=== PATIENT | female | born 1995 | race Hispanic/Latino ===

== ENCOUNTER 2019-05-18 02:15 | Inpatient (IN) | payer BC ==
[2019-05-18] MEDS ORDERED: Ringers Lactate 1,000 ML IV PRN (03:43)
[2019-05-18] MEDS ORDERED: Ringers Lactate 1,000 ML IV SCH (04:00)
[2019-05-18 04:34] VITALS: BMI 28.5
[2019-05-18 05:12] LABS: RPR Titer ND
[2019-05-18 05:18] LABS: Urine Appearance CLOUDY; Urine Bilirubin NEGATIVE (NEG); Urine Blood NEGATIVE (NEG); Urine Color YELLOW; Urine Glucose NEGATIVE (NEG); Urine Protein NEGATIVE (NEG); Urine Specific Gravity 1.015 (1.005-1.030); Urine pH 7.5 (5.0-7.0)
[2019-05-18 05:18] LABS: Absolute Lymphocytes (CBC) 1.5 K/uL (0.7-4.9); Basophils % 0.8 % (0-1.3); Eosinophils % 2.2 % (0-4.4); Hematocrit 38.9 % (36.0-45.0); Lymphocytes % 16.7 % (15.3-44.8); MPV 9.1 fL (7.6-11.3); Monocytes % 7.4 % (3.3-12.3); RBC Red Blood Cell Count 4.68 M/uL (3.86-4.86)
[2019-05-18 05:31] LABS: Urine Microscopic Reflex ORDER UMIC
[2019-05-18] MEDS ORDERED: BUTORPHANOL 1 MG/ML INJ IV ONE (05:42)
[2019-05-18 05:52] LABS: Urine Amorphous Sediment 2+ /HPF (NONE SEEN); Urine Bacteria <20 /HPF (<20); Urine Culture Reflex Order NOT NEEDED; Urine RBC NONE SEEN /HPF (NONE SEEN)
--- NOTE | 2019-05-18 07:28 | P.OBGYNHP ---
Certification for Inpatient Patient admitted to: Inpatient With expected LOS: <2 Midnights Patient will require the following post-hospital care: None Practitioner: I am a practitioner with admitting privileges, knowledge of patient current condition, hospital course, and medical plan of care. Services: Services provided to patient in accordance with Admission requirements found in Title 42 Section 412.3 of the Code of Federal Regulations Patient History Date of Service: 05/19/19 Reason for admission: LABOR History of Present Illness: Patient is a 24 y/o who presents at 38 weeks and 6 days gestation in labor. Patient was seen last night at which time she was 1-2 cm dilated and the exam was unchanged after an hour. Patient was dismissed home and then returned to labor and delivery 4 hours later at which time she was found to be 3cm dilated, 80% effaced levy and uncomfortable. Patient was then admitted for management of labor. She has obtained care with Dr. Urbano. Records present. Patient has a h/o one prior vaginal delivery. See record for further details. Allergies No Known Allergies Allergy (Unverified 03/03/19 21:45) Home Medications: Iron,Carbonyl/Ascorbic Acid [Iron 100-Vitamin C Tablet] 1 each PO BID 05/18/19 Cmb#95/Iron/FA/Dha [ + Dha Combo Pack] 1 each PO DAILY - Past Medical/Surgical History Has patient received pneumonia vaccine in the past: No -: NVD 2010 - Social History Smoking Status: Never smoker Alcohol use: No CD- Drugs: No Caffeine use: No Place of Residence: Home Review of Systems 10-point ROS is otherwise unremarkable Physical Examination - Vital Signs Temperature: 98.9 F Blood Pressure: 119/77 Pulse: 64 Respirations: 20 - General General: Alert, Oriented x3, Mild distress HEENT: Atraumatic Neck: Supple Respiratory: Normal air movement Cardiovascular: No edema, Normal pulses Gastrointestinal: Other (gravid) Musculoskeletal: No clubbing, No swelling, No contractures - Female Pelvic External genitalia: Normal Vagina: Normal, [place] Cervix: Dilation (4-5), Effacement (90%), station (-2) Uterus: Gravid Adnexa: Unable to evaluate - Obstetrics heart rate tracing: Category 2 Amniotic membrane: AROM (clear) Laboratory Data (last 24 hrs) 05/18/19 04:56: WBC 8.9, Hgb 13.1, Hct 38.9, Plt Count 254 Assessment and Plan - Plan 24 y/o who presents at 38 weeks and 6 days gestation in active labor. GBS negative. Rupture of membranes performed. Epidural requested. Will then begin pitocin for labor augmentation. Continuous /maternal monitoring. Anticipate vaginal . Discharge Plan: Home Plan to discharge in: 48 Hours - Advance Directives Does patient have a Living Will: No Does patient have a Durable POA for Healthcare: No
[2019-05-18] MEDS ORDERED: ROPIVACAINE HCL 100 ML IV PRN (07:39)
[2019-05-18] MEDS ORDERED: ROPIVACAINE HCL 0.2% 20ML AMP SQ ONE (07:41)
[2019-05-18] MEDS ORDERED: FENTANYL CITR 100 MCG/2 ML IV ONE (07:42)
[2019-05-18] MEDS ORDERED: CARBOPROST TROME 250 MCG/ML IM ONE (11:34)
[2019-05-18] MEDS ORDERED: METHYLERGONOVINE 0.2MG/ML AMP IM ONE (11:34)
[2019-05-18] MEDS ORDERED: OXYTOCIN/LR 20 UNIT/1,000 ML BAG IV ONE (11:43)
[2019-05-18] MEDS ORDERED: ONDANSETRON 4 MG (ODT) TAB PO PRN (11:46)
[2019-05-18] MEDS ORDERED: Oxycodone HCl/Acetaminophen 1 TAB TAB PO PRN (11:46)
[2019-05-18] MEDS ORDERED: BISACODYL 10 MG RECTAL SUPP RECT PRN (11:46)
[2019-05-18] MEDS ORDERED: METHYLERGONOVINE 0.2 MG TAB PO PRN (11:46)
[2019-05-18] MEDS ORDERED: ACETAMINOPHEN 500 MG TAB PO PRN (11:46)
[2019-05-18] MEDS ORDERED: DOCUSATE NA/SENNA CONC 1 TAB PO PRN (11:46)
--- NOTE | 2019-05-18 11:52 | P.OP ---
Date of Service: 05/18/19 Findings and Operative Technique Patient delivered a viable male in cephalic presentation on 05/18/19 at 11:31. was delivered in KAREN position over a midline episiotomy. Meconium fluid was seen. Once was delivered the nose and mouth were suctioned well with a suction bulb. Cord was clamped and cut and infant was placed on mother's abdomen for skin to skin bonding. Attention was then turned to the umbilical cord, 3 vessel. Cord blood was obtained. Placenta was then delivered with gentle traction at 11:34. [place] bolus started. Attention was then turned to the midline episiotomy, noted to be a first degree, which was repaired with a 2.0 vicryl in a usual fashion. Fundus was palpated and noted to be firm. EBL was 200cc. APGARS were 9/9. Infant weight was found to be 6 lb. First stage of labor was 9 hours. Second stage of labor was 30 minutes. Mom will be breast feeding. Both mom and baby are doing well.
[2019-05-18 20:34] LABS: RPR (Rapid Plasma Reagin) NON-REACT (NON-REACT)
[2019-05-18] MEDS: IBUPROFEN 200 MG TAB PO PRN (21:00)
[2019-05-18 22:31] VITALS: BP 119/77; TEMP 98.9
[2019-05-19] MEDS: IBUPROFEN 200 MG TAB PO PRN (05:38)
[2019-05-19 05:52] LABS: Absolute Lymphocytes (CBC) 2.2 K/uL (0.7-4.9); Basophils % 0.8 % (0-1.3); Eosinophils % 1.5 % (0-4.4); Hematocrit 38.3 % (36.0-45.0); MPV 8.6 fL (7.6-11.3); RBC Red Blood Cell Count 4.63 M/uL (3.86-4.86)
[2019-05-19] MEDS ORDERED: MEASLES,MUMPS,RUBELLA VAC 0.5ML SQVAC ONE (09:48)
--- NOTE | 2019-05-19 22:16 | P.DS ---
Admission Date: 05/18/19 Discharge Date: 05/19/19 Disposition: ROUTINE DISCHARGE Discharge Condition: GOOD Reason for Admission: LABOR Brief History of Present Illness: Patient is a 24 y/o who presents at 38 weeks and 6 days gestation in labor. Patient was seen last night at which time she was 1-2 cm dilated and the exam was unchanged after an hour. Patient was dismissed home and then returned to labor and delivery 4 hours later at which time she was found to be 3cm dilated, 80% effaced levy and uncomfortable. Patient was then admitted for management of labor. She has obtained care with Dr. Urbano. Records present. Patient has a h/o one prior vaginal delivery. See record for further details. Hospital Course: Patient did well following delivery of the baby. She is feeling well. No pain. Voiding without difficulty. She is bonding well with the baby and breast feeding. She has been afebrile. Tolerating a regular diet. Minimal bleeding. Vital Signs/Physical Exam: Temp Pulse Resp BP Pulse Ox 97.8 F 68 18 119/69 05/19/19 12:00 05/19/19 12:00 05/19/19 12:00 05/19/19 12:00 General: Alert, In no apparent distress HEENT: Atraumatic Neck: Supple Respiratory: Normal air movement Cardiovascular: No edema Gastrointestinal: Other (fundus firm, palpable beneath umbilicus) Musculoskeletal: No clubbing, No swelling Integumentary: No rashes, No breakdown Neurological: Normal gait, Normal speech, Normal tone, Sensation intact External genitalia: No edema Laboratory Data at Discharge: WBC 10.8 K/uL (4.3-10.9) D 05/19/19 05:41 Hgb 13.3 g/dL (12.0-15.0) 05/19/19 05:41 Hct 38.3 % (36.0-45.0) 05/19/19 05:41 Plt Count 251 K/uL (152-406) 05/19/19 05:41 Home Medications: Iron,Carbonyl/Ascorbic Acid [Iron 100-Vitamin C Tablet] 1 each PO BID 05/18/19 Cmb#95/Iron/FA/Dha [ + Dha Combo Pack] 1 each PO DAILY Diet: Regular Activity: Ad rosa Followup: Whitley Urbano MD [ACTIVE - CAN ADMIT] - 1 Week
[2019-05-20 12:33] LABS: HBsAG Nonreactive (Nonreactive)
== END 2019-05-19 13:00 | disposition home or self-care (01) | DRG 807 ==
LOC: L&D 02:15 → 2ND-WC 03:38
PROVIDERS: ADMIT Specialist; ATTEND Specialist
PROC: 10E0XZZ Delivery of Products of Conception, External Approach (ICD-10-PCS; principal; 2019-05-18)
PROC: 0W8NXZZ Division of Female Perineum, External Approach (ICD-10-PCS; 2019-05-18)
DX: O80 Encounter for full-term uncomplicated delivery (principal); Z37.0 Single live birth; Z3A.38 38 weeks gestation of pregnancy
CPT/HCPCS: 36415; 81003; 81015; 85025; 86592; 86901; 87340; 90471; 90707; J0595; J2210; J2590; J2795; J3010

== ENCOUNTER 2021-01-21 17:01 | Emergency (ER) | payer BC, SELFPAY ==
[2021-01-21 18:01] LABS: Urine Blood NEGATIVE (NEG); Urine Glucose NEGATIVE (NEG); Urine Protein 1+ (NEG); Urine Specific Gravity >1.030 (1.005-1.030)
[2021-01-21 18:01] LABS: Absolute Lymphocytes (CBC) 0.7 K/uL (0.7-4.9); Basophils % 0.2 % (0-1.3); Hematocrit 24.4 % (36.0-45.0); Lymphocytes % 10.1 % (15.3-44.8); MPV 8.7 fL (7.6-11.3); RBC Red Blood Cell Count 2.95 M/uL (3.86-4.86)
[2021-01-21 18:22] LABS: ALT/SGPT 26 U/L (12-78); AST/SGOT 12 U/L (15-37); Albumin 3.8 g/dL (3.4-5.0); Alkaline Phosphatase 68 U/L (45-117); Bilirubin Direct < 0.1 mg/dL (0-0.2); Bilirubin Total 0.3 mg/dL (0.2-1.0); Protein, Total 6.9 g/dL (6.4-8.2)
[2021-01-21 18:31] LABS: BUN Blood Urea Nitrogen 11 mg/dL (7-18); Bicarbonate 24 mmol/L (21-32); Glucose Level 97 mg/dL (74-106); HCG, Quantitative 1245 mIU/mL (1-3); Potassium 3.5 mmol/L (3.5-5.1); Sodium Level 139 mmol/L (136-145)
--- NOTE | 2021-01-21 18:59 | RAD REPORT ---
EXAM DESCRIPTION: US - Transvaginal OB - 01/21/2021 6:51 pm CLINICAL HISTORY: ABD PAIN Pelvic pain, vaginal bleeding COMPARISON: OB Complete dated 12/31/2018 FINDINGS: The uterus is normal in size. The endometrium is thickened to 7 mm. No IUP is evident. The maternal adnexa and ovaries are within normal limits. Normal Doppler blood flow was demonstrated to both ovaries. No pelvic ascites. IMPRESSION: Endometrial stripe appears thickened without IUP identified. In the setting of an elevat ed HCG level, this would be compatible with of unknown location. Recommend close interval follow-up pelvic ultrasound and serial HCG levels.
--- NOTE | 2021-01-21 19:53 | ER ---
Nurse's Notes [facility] Name: Veronica Norton Age: 25 yrs Sex: Female : 1995 Arrival Date: 01/21/2021 Time: 17:02 Bed 13 Private MD: Diagnosis: Spontaneous Presentation: 01/21 17:16 Chief complaint: Patient states: Vaginal bleeding with clots for 2-3 days. Feels weak ll1 and dizzy. Had a positive test 2 weeks ago. G3, P2. Coronavirus screen: Client denies travel out of the [place] in the last 14 days. At this time, the client does not indicate any symptoms associated with coronavirus-19. Ebola Screen: Patient denies travel to an Ebola-affected area in the 21 days before illness onset. Initial Sepsis Screen: Does the patient meet any 2 criteria? No. Patient's initial sepsis screen is negative. Does the patient have a suspected source of infection? Yes: Acute abdominal pain. Risk Assessment: Do you want to hurt yourself or someone else? Patient reports no desire to harm self or others. Onset of symptoms was January 19, 2021. 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 - Social history:: Smoking status: Patient denies any tobacco usage or history of. Screenin:45 Abuse screen: Denies threats or abuse. Denies injuries from another. Nutritional jl7 screening: No deficits noted. Tuberculosis screening: No symptoms or risk factors identified. Fall Risk IV access (20 points). Total Pinedo Fall Scale indicates No Risk (0-24 pts). Assessment: 17:45 General: Appears in no apparent distress. uncomfortable, Behavior is calm, cooperative, jl7 appropriate for age. Pain: Pain currently is 6 out of 10 on a pain scale. Neuro: Level of Consciousness is awake, alert, obeys commands, Oriented to person, place, time, situation. Cardiovascular: Patient's skin is warm and dry. Respiratory: Airway is patent Respiratory effort is even, unlabored, Respiratory pattern is regular, symmetrical. : Urine is Reports vaginal bleeding that is with clots. Derm: Skin is pink, warm \T\ dry. 19:58 Reassessment: Patient appears in no apparent distress at this time. Patient and/or em family updated on plan of care and expected duration. Pain level reassessed. Patient is alert, oriented x 3, equal unlabored respirations, skin warm/dry/pink. Vital Signs: 17:16 BP 141 / 99; Pulse 103; Resp 17; Temp 99.2; Pulse Ox 98% ; Weight 63.5 kg; Height 5 ft. ll1 1 in. (154.94 cm); Pain 6/10; 17:16 Body Mass Index 26.45 (63.50 kg, 154.94 cm) ll1 ED Course: 17:02 Patient arrived in ED. as 17:17 Triage completed. ll1 17:18 Arm band placed on Patient placed in an exam room, on a stretcher. ll1 17:20 Jerson Houston PA is PHCP. jr8 17:20 Colten Monique MD is Attending Physician. jr8 17:45 Patient has correct armband on for positive identification. Placed in gown. Bed in low jl7 position. Call light in reach. Side rails up X 1. Pulse ox on. NIBP on. Warm blanket given. 17:47 Sage Rojas, IDALIA is Primary Nurse. jl7 17:54 Inserted saline lock: 20 gauge in right forearm, using aseptic technique. Blood mt collected. 18:00 Initial lab(s) drawn, by ED staff, sent to lab. Urine collected: clean catch specimen, jl7 clear. 18:36 US Transvaginal Ob In Process Unspecified. EDMS 19:57 No provider procedures requiring assistance completed. IV discontinued, intact, em bleeding controlled, No redness/swelling at site. Pressure dressing applied. Administered Medications: No medications were administered Outcome: 19:52 Discharge ordered by . jr8 19:57 Discharged to home ambulatory. em 19:57 Condition: good 19:57 Discharge instructions given to patient, Instructed on discharge instructions, follow up and referral plans. medication usage, Demonstrated understanding of instructions, follow-up care, Prescriptions given X 1. 19:58 Patient left the ED. em Signatures: Dispatcher [employer] Skyler Alaniz, RN RN Arti Collins Josh, PA PA jr8 Sage Rojas RN RN jl7 Lor Pandey mt, Lynsay, RN RN ll1
--- NOTE | 2021-01-21 19:53 | EDPHYS ---
Physician Documentation [facility] Name: Veronica Norton Age: 25 yrs Sex: Female : 1995 Arrival Date: 01/21/2021 Time: 17:02 Bed 13 Private MD: ED Physician Colten Monique HPI: 01/21 17:32 This 25 yrs old Female presents to ER via Ambulatory with complaints of jr8 Vaginal Bleeding - \R\8 wks preg, Abdominal Pain. 17:32 The patient presents with vaginal bleeding that is heavy. Onset: The symptoms/episode jr8 began/occurred 3 day(s) ago. Associated signs and symptoms: Pertinent positives: Dizziness. Patient reports home UPT with positive result 2 weeks ago. 3 days ago she started bleeding with abd cramping. Yesterday she was passing clots, increased abd pain, and dizziness. Today she has lower abd pain with bleeding no clots. . 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 - Social history:: Smoking status: Patient denies any tobacco usage or history of. ROS: 17:34 Cardiovascular: Negative for chest pain, palpitations, and edema, Respiratory: Negative jr8 for shortness of breath, cough, wheezing, and pleuritic chest pain, Back: Negative for injury and pain, MS/Extremity: Negative for injury and deformity, Skin: Negative for injury, rash, and discoloration, Neuro: Negative for headache, weakness, numbness, tingling, and seizure. 17:34 Abdomen/GI: Positive for abdominal pain. 17:34 : Positive for vaginal bleeding. Exam: 17:35 Chest/axilla: Normal chest wall appearance and motion. Nontender with no deformity. jr8 No lesions are appreciated. Cardiovascular: Regular rate and rhythm with a normal S1 and S2. No gallops, murmurs, or rubs. Normal PMI, no JVD. No pulse deficits. Respiratory: Lungs have equal breath sounds bilaterally, clear to auscultation and percussion. No rales, rhonchi or wheezes noted. No increased work of breathing, no retractions or nasal flaring. Back: No spinal tenderness. No costovertebral tenderness. Full range of motion. Skin: Warm, dry with normal turgor. Normal color with no rashes, no lesions, and no evidence of cellulitis. MS/ Extremity: Pulses equal, no cyanosis. Neurovascular intact. Full, normal range of motion. 19:51 : Pelvic Exam: External exam: is normal, Speculum exam: mild bleeding, no cervicitis, jr8 os that is open, discharge, is not appreciated, a female bone density technician was present for the exam, No tissue in vault . Vital Signs: 17:16 BP 141 / 99; Pulse 103; Resp 17; Temp 99.2; Pulse Ox 98% ; Weight 63.5 kg; Height 5 ft. ll1 1 in. (154.94 cm); Pain 6/10; 17:16 Body Mass Index 26.45 (63.50 kg, 154.94 cm) ll1 MDM: 17:20 Patient medically screened. 8 17:35 Data reviewed: vital signs, nurses notes, lab test result(s), radiologic studies, jr8 ultrasound. Data interpreted: monitor car operator: rate is 103 beats/min, rhythm is normal sinus rhythm, Pulse oximetry: on room air is 98 %. Interpretation: normal. 19:04 Counseling: I had a detailed discussion with the patient and/or guardian regarding: the 8 historical points, exam findings, and any diagnostic results supporting the discharge/admit diagnosis, lab results, radiology results, the need for outpatient follow up, an OB/Gyne specialist, to return to the emergency department if symptoms worsen or persist or if there are any questions or concerns that arise at home. 01/21 17:29 Order name: Quantitative Hcg jr8 01/21 17:29 Order name: Abo/rh Typing; Complete Time: 18:48 jr8 01/21 17:29 Order name: Basic Metabolic Panel; Complete Time: 18:36 jr8 01/21 17:29 Order name: CBC with Diff; Complete Time: 20:41 jr8 01/21 17:30 Order name: HCG, Quantitative; Complete Time: 18:36 EDMS 01/21 17:53 Order name: LFT's; Complete Time: 18:36 jr8 01/21 17:29 Order name: IV Saline Lock; Complete Time: 17:54 jr8 01/21 17:29 Order name: Labs collected and sent; Complete Time: 17:54 jr8 01/21 17:29 Order name: NPO; Complete Time: 17:54 jr8 01/21 17:29 Order name: Urine Dipstick-Ancillary (obtain specimen); Complete Time: 17:53 jr8 01/21 17:30 Order name: US Transvaginal Ob; Complete Time: 19:03 jr8 01/21 17:55 Order name: Urine Dipstick--Ancillary (enter results); Complete Time: 18:02 em1 01/21 17:55 Order name: Urine --Ancillary (enter results); Complete Time: 18:02 em1 Administered Medications: No medications were administered Disposition: 22:01 Co-signature as Attending Physician, Colten Monique MD I agree with the assessment and kdr plan of care. Disposition: 01/21/21 19:52 Discharged to Home. Impression: Spontaneous . - Condition is Stable. - Discharge Instructions: Miscarriage. - Prescriptions for Ferrous Sulfate 325 mg (65 mg Iron) Oral Tablet - take 1 tablet by ORAL route every 8 hours; 90 tablet. - Medication Reconciliation Form, Thank You Letter, Antibiotic Education, Prescription Opioid Use form. - Follow up: Private Physician; When: Tomorrow; Reason: Recheck today's complaints, Continuance of care, Re-evaluation by your physician. - Problem is new. - Symptoms have improved. Signatures: Dispatcher [employer] [facility] Colten Monique MD MD [facility] Skyler Aguilera, RN RN em Jerson Houston PA PA jr8 Amilcar Ly, RN RN ll1 Corrections: (The following items were deleted from the chart) 17:31 17:30 Transvaginal Study (Probe)+US.RAD.BRZ ordered. [facility] 19:58 19:52 01/21/2021 19:52 Discharged to Home. Impression: Spontaneous . Condition em is Stable. Forms are Medication Reconciliation Form, Thank You Letter, Antibiotic Education, Prescription Opioid Use. Follow up: Private Physician; When: Tomorrow; Reason: Recheck today's complaints, Continuance of care, Re-evaluation by your physician. Problem is new. Symptoms have improved. jr8
[2021-01-21 20:30] LABS: Blood Morphology Comment NOT SEEN (NOT SEEN); Platelet Estimate ADEQ; White Blood Cell Scan OK (OK)
[2021-01-21 21:18] VITALS: BP 141/99; TEMP 99.2; O2SAT 98
== END 2021-01-21 19:58 | disposition home or self-care (01) ==
LOC: ER 17:01
DX: O03.9 Complete or unspecified spontaneous abortion without complication (principal)
CPT/HCPCS: 36415; 76817; 80048; 80076; 81003; 81025; 84702; 85025; 86900; 86901; 99284

== ENCOUNTER 2022-10-21 15:53 | Emergency (ER) | payer SELFPAY ==
--- NOTE | 2022-10-21 17:18 | RAD REPORT ---
EXAM DESCRIPTION: US - Transvaginal OB - 10/21/2022 5:11 pm CLINICAL HISTORY: Vaginal bleeding COMPARISON: Transvaginal OB dated 01/21/2021 FINDINGS: A single gestational sac is seen within the uterus. The shape of the sac is within normal limits for gestational age. Within the sac is a single pole with crown-rump length of 26 mm, co rrelating to estimated gestational age of 9 weeks 0 days. Estimated date of delivery is 05/26/2023. Heart rate is 169 BPM. The placenta is not yet developed due to early gestational age. The maternal adnexa and ovaries are within normal limits. Normal Doppler blood flow was demonstrated to both ovaries. IMPRESSION: Single live early intrauterine gestation with estimated gestational age of 9 weeks and 0 days, DONALD 05/26/2023. No unusual or unexpected finding.
[2022-10-21 17:38] LABS: Absolute Lymphocytes (CBC) 2.6 K/uL (0.7-4.9); Hematocrit 39.1 % (36.0-45.0); Lymphocytes % 20.7 % (15.3-44.8); MCV 82.6 fL (80-100); MPV 8.2 fL (7.6-11.3); RBC Red Blood Cell Count 4.73 M/uL (3.86-4.86)
[2022-10-21 17:57] LABS: Potassium 3.6 mmol/L (3.5-5.1)
[2022-10-21] MEDS ORDERED: POTASSIUM 25 MEQ EFFERV TAB ONE (18:21)
[2022-10-21 18:50] LABS: Urine Blood 2+ (Negative); Urine Glucose Negative (Negative); Urine Protein Negative (Negative); Urine Specific Gravity 1.015 (1.005-1.030)
--- NOTE | 2022-10-21 18:51 | ER ---
Nurse's Notes [facility] Name: Veronica Norton Age: 27 yrs Sex: Female : 1995 Arrival Date: 10/21/2022 Time: 16:04 Bed 10 Private MD: Diagnosis: Threatened Presentation: 10/21 16:18 Chief complaint: Patient states: Positive test 10/09, lower abdominal kb3 cramping that began yesterday and light bleeding that began today. Pt states 2 pads used today. A1. Coronavirus screen: Vaccine status: Patient reports being unvaccinated. Client denies travel out of the [place] in the last 14 days. Ebola Screen: Patient negative for fever greater than or equal to 101.5 degrees Fahrenheit, and additional compatible Ebola Virus Disease symptoms Patient denies exposure to infectious person. Patient denies travel to an Ebola-affected area in the 21 days before illness onset. Initial Sepsis Screen: Does the patient meet any 2 criteria? No. Patient's initial sepsis screen is negative. Does the patient have a suspected source of infection? No. Patient's initial sepsis screen is negative. Risk Assessment: Do you want to hurt yourself or someone else? Patient reports no desire to harm self or others. Onset of symptoms was October 20, 2022. 16:18 Method Of Arrival: Ambulatory kb3 16:18 Acuity: JUAN JOSE 3 kb3 Triage Assessment: 16:20 General: Appears in no apparent distress. Behavior is calm, cooperative. Pain: kb3 Complains of pain in right lower quadrant and left lower quadrant Pain does not radiate. Pain currently is 8 out of 10 on a pain scale. Quality of pain is described as crampy. : Reports vaginal bleeding that is Denies burning with urination, pain urinary frequency, urgency. 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 Last tetanus immunization: up to date. - Social history:: Smoking status: Patient denies any tobacco usage or history of. Screenin:39 Abuse screen: Denies threats or abuse. Denies injuries from another. Nutritional jh5 screening: No deficits noted. Tuberculosis screening: No symptoms or risk factors identified. Fall Risk None identified. Vital Signs: 16:18 BP 129 / 89; Pulse 72; Resp 20; Temp 98; Pulse Ox 98% ; Weight 66.68 kg; Height 5 ft. 1 kb3 in. (154.94 cm); Pain 8/10; 18:38 BP 122 / 78; Pulse 76; Resp 18; Temp 98.6; Pulse Ox 99% ; jh5 16:18 Body Mass Index 27.78 (66.68 kg, 154.94 cm) kb3 ED Course: 16:04 Patient arrived in ED. mr 16:11 [facility]C [facility] kb 16:11 Torres He MD is Attending Physician. kb 16:20 Triage completed. kb3 16:20 Arm band placed on right wrist. kb3 17:12 US Transvaginal Ob In Process Unspecified. EDMS 17:25 Inserted saline lock: 22 gauge in right antecubital area, using aseptic technique. ss Blood collected. Patient maintains SpO2 saturation greater than 95% on room air. 18:20 Jennifer Padilla, RN is Primary Nurse. jh5 18:39 Patient has correct armband on for positive identification. jh5 18:39 No provider procedures requiring assistance completed. jh5 Administered Medications: No medications were administered Medication: 18:39 VIS not applicable for this client. jh5 Outcome: 18:51 Discharge ordered by . kb 19:03 Patient left the ED. jh5 Signatures: Dispatcher [employer] EDMS Jenny Little FNP-C FNP-Alo Pola Violetta mr Graciela Hebert RN RN ss Jennifer Padilla, IDALIA RN jh5 Tawanna Garcia, IDALIA RN kb3
--- NOTE | 2022-10-21 18:51 | EDPHYS ---
Physician Documentation [facility] Name: Veronica Norton Age: 27 yrs Sex: Female : 1995 Arrival Date: 10/21/2022 Time: 16:04 Bed 10 Private MD: ED Physician Torres He HPI: 10/21 18:58 This 27 yrs old Female presents to ER via Ambulatory with complaints of kb Vaginal Bleeding, + Preg <12wks. 18:58 The patient presents to the emergency department with abdominal pain, described as kb crampy, vaginal bleeding, that is light. The estimated gestational age is 8 weeks. course: care: none, Leakage of Fluid: none appreciated, Ultrasound: the patient has not had an ultrasound. Previous pregnancies: in previous pregnancies patient has had. Associated signs and symptoms: Pertinent positives: abdominal pain, vaginal bleeding. The patient has not experienced similar symptoms in the past. The patient has not recently seen a physician. 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 Last tetanus immunization: up to date. - Social history:: Smoking status: Patient denies any tobacco usage or history of. ROS: 18:35 Constitutional: Negative for fever, chills, and weight loss. kb 18:35 Abdomen/GI: Positive for abdominal cramps. 18:35 : Positive for vaginal bleeding. 18:35 All other systems are negative. Exam: 18:57 Constitutional: This is a well developed, well nourished patient who is awake, alert, kb and in no acute distress. Head/Face: Normocephalic, atraumatic. ENT: Moist Mucous membranes Cardiovascular: Regular rate and rhythm with a normal S1 and S2. No gallops, murmurs, or rubs. No pulse deficits. Respiratory: Respirations even and unlabored. No increased work of breathing. Talking in full sentences Abdomen/GI: Soft, non-tender. No distention Skin: Warm, dry with normal turgor. Normal color. MS/ Extremity: Pulses equal, no cyanosis. Neurovascular intact. Full, normal range of motion. Neuro: Awake and alert, GCS 15, oriented to person, place, time, and situation. Moves all extremities. Normal gait. Psych: Awake, alert, with orientation to person, place and time. Behavior, mood, and affect are within normal limits. Vital Signs: 16:18 BP 129 / 89; Pulse 72; Resp 20; Temp 98; Pulse Ox 98% ; Weight 66.68 kg; Height 5 ft. 1 kb3 in. (154.94 cm); Pain 8/10; 18:38 BP 122 / 78; Pulse 76; Resp 18; Temp 98.6; Pulse Ox 99% ; jh5 16:18 Body Mass Index 27.78 (66.68 kg, 154.94 cm) kb3 MDM: 16:24 Patient medically screened. kb 18:58 Data reviewed: vital signs, nurses notes. Data interpreted: Pulse oximetry: on room air kb is 99 %. Interpretation: normal. Counseling: I had a detailed discussion with the patient and/or guardian regarding: the historical points, exam findings, and any diagnostic results supporting the discharge/admit diagnosis, lab results, radiology results, the need for outpatient follow up, an OB/Gyne specialist, to return to the emergency department if symptoms worsen or persist or if there are any questions or concerns that arise at home. 10/21 16:23 Order name: Abo/rh Typing; Complete Time: 18:04 kb 10/21 16:23 Order name: Basic Metabolic Panel; Complete Time: 18:17 kb 10/21 16:23 Order name: CBC with Diff; Complete Time: 17:41 kb 10/21 16:23 Order name: Quantitative Hcg; Complete Time: 18:17 kb 10/21 18:50 Order name: Urine Dipstick-Ancillary; Complete Time: 18:50 EDMS 10/21 18:51 Order name: Urine --Ancillary (enter results); Complete Time: 18:57 ds4 10/21 16:23 Order name: US Transvaginal Ob; Complete Time: 17:19 kb 10/21 16:23 Order name: IV Saline Lock; Complete Time: 17:25 kb 10/21 16:23 Order name: Labs collected and sent; Complete Time: 17:25 kb 10/21 16:23 Order name: NPO; Complete Time: 17:25 kb 10/21 16:23 Order name: Urine Dipstick-Ancillary (obtain specimen); Complete Time: 18:48 kb 10/21 16:23 Order name: Urine Test (obtain specimen); Complete Time: 18:48 kb Administered Medications: No medications were administered Disposition Summary: 10/21/22 18:51 Discharge Ordered Location: Home kb Condition: Stable kb Diagnosis - Threatened kb Followup: kb - With: Emergency Department - When: As needed - Reason: Worsening of condition Followup: kb - With: Private Physician - When: 2 - 3 days - Reason: Recheck today's complaints, Continuance of care, Re-evaluation by your physician Discharge Instructions: - Discharge Summary Sheet kb - Threatened Miscarriage, [id number] kb - Vaginal Bleeding During , First Trimester, [id number] kb Forms: - Medication Reconciliation Form kb - Thank You Letter kb - Antibiotic Education kb - Prescription Opioid Use kb Addendum: 10/25/2022 13:54 Co-signature as Attending Physician, Torres He MD. r n Signatures: Dispatcher [employer] Jenny Ritchie, BAGGING SALVAGER-C BAGGING SALVAGER-Ckb Torres He MD MD rn Bradberry, Kelly, RN RN kb3
[2022-10-21 18:56] LABS: Urine Specific Gravity/Preg 1.015 (1.005-1.030)
[2022-10-21 19:43] VITALS: BP 122/78; TEMP 98.6; O2SAT 99
== END 2022-10-21 19:03 | disposition home or self-care (01) ==
LOC: ER 15:53
DX: O20.0 Threatened abortion (principal); Z3A.08 8 weeks gestation of pregnancy; Z98.82 Breast implant status
CPT/HCPCS: 36415; 76817; 80048; 81003; 81025; 84702; 85025; 86900; 86901; 99284